=== PATIENT | female | born 1965 | race Caucasian/White ===

== ENCOUNTER 2018-11-19 13:23 | Day surgery (SDC) | payer BC, OTHER ==
[~2018-11-19] VITALS: Ht 167.6 cm; Wt 97.8 kg
[2018-11-19] MEDS ORDERED: IBUPROFEN (15:28)
[2018-11-19] MEDS ORDERED: ALBUTEROL INH (15:29)
[2018-11-19] MEDS ORDERED: NORVASC (15:29)
[2018-11-19] MEDS ORDERED: ASPIRIN (15:29)
[2018-11-19] MEDS ORDERED: BENAZAPRIL (15:29)
[2018-11-19] MEDS ORDERED: ATENOLOL (15:29)
[2018-11-19] MEDS ORDERED: VENTOLIN HFA (15:29)
--- NOTE | 2018-11-19 15:48 | PREAC ---
Date/Time of Note Date/Time of Note DATE: 11/19/18 TIME: 15:46 Anesthesia Eval and Record Evaluation Time Pre-Procedure Interview DATE: 11/19/18 TIME: 15:46 Age 53 Sex female NPO: 8 hrs Preoperative diagnosis heartburn, screening for colon cancer Planned procedure EGD, colonoscopy Past Medical History Past Medical History: Includes Cardio: HTN Pulm: Asthma GI: Obesity Surgery & Anesthesia Issues No known issue Meds Anticoagulation: No Beta Shoaib within 24 hr: Yes Reason Beta Shoaib not given: Bradycarida, Hypotension, Asthma Reported Medications [Albuterol Inh] No Conflict Check 11/19/18 [Ventolin Hfa] No Conflict Check 11/19/18 [Aspirin] No Conflict Check 11/19/18 [Atenolol] No Conflict Check 11/19/18 [Benazapril] No Conflict Check 11/19/18 [Norvasc] No Conflict Check 11/19/18 [Ibuprofen] No Conflict Check 11/19/18 Meds reviewed: Yes Allergies Coded Allergies: No Known Allergy (Unverified , 11/19/18) Allergies Reviewed: Yes Labs/Studies Labs Reviewed: Reviewed by anesthesiologist test: N/A Pre-procedure Exam Airway: Adequate mouth opening, Adequate thyromental dist Mallampati: Mallampati II Teeth: Normal Lung: Normal Heart: Normal ASA Physical Status ASA physical status: 2 Emergency: None Planned Anesthetic General/MAC: Mask Planned Pain Management Parenteral pain med Pre-operative Attestations Prior to commencing anesthesia and surgery, the patient was re-evaluated, there was verification of: *The patient's identity *The results of appropriate recent lab work and preoperative vital signs *The above evaluation not changing prior to induction *Anesthetic plan, risk benefits, alternative and complications discussed with patient/family; questions answered; patient/family understands, accepts and wish es to proceed. RIC HALE MD Nov 19, 2018 15:48
[2018-11-19] MEDS ORDERED: ONDANSETRON 4 MG INJ IV PRN (16:00)
[2018-11-19] MEDS ORDERED: LABETALOL HCL 20MG INJ IV PRN (16:00)
[2018-11-19] MEDS ORDERED: hydrALAzine 20 MG INJ IV PRN (16:00)
[2018-11-19 16:12] VITALS: BP 114/68; PULSE 58; RESP 20
[2018-11-19] MEDS ORDERED: LIDOCAINE 2% (SDV) 5 ML INJ ONE (17:22)
[2018-11-19] MEDS ORDERED: PROPOFOL 60 ML ONE (17:22)
[2018-11-19] MEDS ORDERED: EPHEDrine 25 MG/5 ML SYG ONE (17:53)
--- NOTE | 2018-11-19 18:01 | PAC ---
Date/Time of Note Date/Time of Note DATE: 11/19/18 TIME: 18:01 Post-Anesthesia Notes Post-Anesthesia Note Last documented vital signs Vital Signs Date Temp Pulse Resp B/P (MAP) Pulse Ox O2 O2 Flow FiO2 Time Delivery Rate 11/19/18 98.3 58 20 114/68 100 Room Air 16:12 (83) Activity: WNL Respiratory function: WNL Cardiovascular function: WNL Mental status: Baseline Pain reasonably controlled: Yes Hydration appropriate: Yes Nausea/Vomiting absent: Yes Comments BP: 98/60 HR: 62 RR: 15 T: 98 SaO2: 100% RIC HALE MD Nov 19, 2018 18:01
[2018-11-19 18:20] VITALS: BP 119/69; PULSE 68; RESP 18
== END 2018-11-19 18:52 | disposition home or self-care (01) ==
LOC: GIL 13:23
PROVIDERS: ATTEND Internal Medicine Gastroenterology
DX: Z12.11 Encounter for screening for malignant neoplasm of colon (principal); K64.8 Other hemorrhoids; I10 Essential (primary) hypertension; J45.909 Unspecified asthma, uncomplicated; Z79.82 Long term (current) use of aspirin
CPT/HCPCS: 45378; 88305; Z7610